=== PATIENT | male | born 1965 | race Caucasian/White ===

== ENCOUNTER 2022-09-18 12:58 | Day surgery (SDC) | payer OTHER ==
[~2022-09-18 12:58] MED LIST: ANESTHESIA TRAY IN PYXIS 1 EA TRAY MC ONE; BUPIVACAINE 0.5 % PF 150 MG/30 ML VIAL ONE; POLYMYXIN B SULFATE 0 UNITS ONE
[2022-09-18] MEDS ORDERED: KETAMINE HCL (500MG/10ML) 50 MG/ML VIAL ONE (13:40)
[2022-09-18] MEDS ORDERED: FENTANYL PF 100MCG/2ML AMPUL ONE (13:40)
[2022-09-18] MEDS ORDERED: ROCURONIUM BROMIDE 50 MG/5 ML ONE (13:41)
[2022-09-18] MEDS ORDERED: FAMOTIDINE/PF INJ 20 MG/2 ML VIAL IV ONE (13:41)
[2022-09-18] MEDS ORDERED: Magnesium 1 GM/2 ML VIAL ONE (13:41)
[2022-09-18] MEDS ORDERED: ROPIVACAINE HCL 0.5% 5 MG/ML 30ML VIAL ONE ×2 (13:41→13:51)
[2022-09-18] MEDS ORDERED: POLYMYXIN B SULFATE 500,000 UNITS ONE (14:07)
[2022-09-18] MEDS ORDERED: BUPIVACAINE 0.25% 75 MG/30 ML VIAL ONE (14:07)
== END 2022-09-18 20:25 | disposition home or self-care (01) ==
LOC: DS 12:58
PROVIDERS: ATTEND Student in an Organized Health Care Education/Training Program
DX: S52.572A Other intraarticular fracture of lower end of left radius, initial encounter for closed fracture (principal); X58.XXXA Exposure to other specified factors, initial encounter; Y93.89 Activity, other specified; Y92.89 Other specified places as the place of occurrence of the external cause; Y99.8 Other external cause status
CPT/HCPCS: 73090-TC; A4217; A4565; A6253; C1713; J0690; J1100; J1885; J2370; J2405; J2704; J2765; J2795; J3010; J3475; J3490; J7030